=== PATIENT | female | born 1980 ===

== ENCOUNTER 2017-04-12 11:50 | Emergency (ER) | payer OTHER ==
[2017-04-12 11:57] VITALS: O2SAT 100; BMI 26.3
--- NOTE | 2017-04-12 12:21 | ED PDOC ---
Arrival/HPI - General Chief Complaint: Trauma Time Seen by Provider: 04/12/17 12:13 Historian: Patient - History of Present Illness Narrative History of Present Illness (Text): 04/12/17 12:18 36 y/o female, no significant pmh, nkda, c/o lt. elbow pain s/p fall from the standing position x 1 hour. Pt. is an employee of the hospital, slipped on the wet floor and landed on the left elbow, feeling left elbow pain, no head/neck/ back injury, no LOC, no change in vision, no hematuria, no night sweat, no numbness or tingling, no loss of sensation of the lt. upper extremity, no other medical or psychological complaints. Past Medical History - Provider Review Nursing Documentation Reviewed: Yes - Psychiatric Hx Substance Use: No - Anesthesia Hx Anesthesia: No Family/Social History - Physician Review Nursing Documentation Reviewed: Yes Family/Social History: Unknown Family HX Smoking Status: Never Smoked Hx Alcohol Use: No Hx Substance Use: No Allergies/Home Meds Allergies/Adverse Reactions: Allergies No Known Allergies Allergy (Verified 04/12/17 11:57) Review of Systems - Review of Systems Constitutional: absent: Fatigue, Fevers Eyes: absent: Vision Changes ENT: absent: Hearing Changes Respiratory: absent: SOB, Cough Cardiovascular: absent: Chest Pain Gastrointestinal: absent: Abdominal Pain, Nausea, Vomiting Genitourinary Female: absent: Dysuria Musculoskeletal: Arthralgias, Myalgias. absent: Back Pain, Neck Pain Skin: absent: Rash, Pruritis Neurological: absent: Headache, Dizziness, Focal Weakness Psychiatric: absent: Anxiety, Depression, Suicidal Ideation Physical Exam Vital Signs Reviewed: Yes Vital Signs Temp Pulse Resp BP Pulse Ox 04/12/17 12:57 98 F 73 20 122/65 100 04/12/17 12:52 68 18 123/75 100 04/12/17 11:52 98.3 F 70 18 127/85 100 Temperature: Afebrile Blood Pressure: Normal Pulse: Regular Respiratory Rate: Normal Appearance: Positive for: Well-Appearing, Non-Toxic, Comfortable Pain Distress: Mild Mental Status: Positive for: Alert and Oriented X 3 - Systems Exam Head: Present: Atraumatic, Normocephalic Pupils: Present: PERRL Extroacular Muscles: Present: EOMI Conjunctiva: Present: Normal Mouth: Present: Moist Mucous Membranes Neck: Present: Normal Range of Motion, Trachea Midline. No: MIDLINE TENDERNESS , Paraspinal Tenderness Respiratory/Chest: Present: Clear to Auscultation, Good Air Exchange. No: Respiratory Distress, Accessory Muscle Use Cardiovascular: Present: Regular Rate and Rhythm, Normal S1, S2. No: Murmurs Abdomen: Present: Normal Bowel Sounds. No: Tenderness, Distention, Peritoneal Signs, Rebound, Guarding Back: Present: Normal Inspection. No: Midline Tenderness, Paraspinal Tenderness , Pain with Leg Raise Upper Extremity: Present: Normal Inspection, Other (LUE: mild +ttp on the olecranon region, no swelling or deformity, skin intact, FROM without limitation , sensation intact, motor 5/5, +radial pulse, capillary refill< 2 seconds, neurovascular intact.). No: Cyanosis, Edema Lower Extremity: Present: Normal Inspection. No: Edema Neurological: Present: GCS=15, CN II-XII Intact, Speech Normal, Motor Func Grossly Intact, Gait Normal, Memory Normal Skin: Present: Warm, Dry, Normal Color. No: Rashes Psychiatric: Present: Alert, Oriented x 3, Normal Insight, Normal Concentration Medical Decision Making ED Course and Treatment: 04/12/17 12:21 -tylenol and left elbow xray 04/12/17 12:44 -Lt. elbow xray show no fracture or dislocation -Uli wrap applied with neurovascular intact. -Discharge home with uli wrap, naproxen, ice compression, follow up with your own employee health within 24-48 hours, follow up with your own pmd and orthopedic within 4 days, return to the ER for any new or worsening signs or symptoms. - RAD Interpretation Radiology Orders: 04/12/17 12:13 ELBOW LEFT 3 VIEWS ROUTINE [RAD] Stat no evidence of acute pathology. Water Purification Chemist: Radiologist - Medication Orders Current Medication Orders: Discontinued Medications Acetaminophen (Tylenol 325mg Tab) 650 mg PO STAT STA Stop: 04/12/17 12:14 Last Admin: 04/12/17 12:20 Dose: 650 mg MAR Pain/Vitals Document 04/12/17 12:20 GMI (Rec: 04/12/17 12:21 [facility] [id number]) Pain Reassessment Is This A Pain ReAssessment? Yes Sleep Is patient sleeping during reassessment? No Presence of Pain Presence of Pain Yes Pain Scale Used Pain Scale Used Numeric Location Left, Right or Bilateral Left Pain Location Body Site Elbow Description Intermittent Intensity 5 Pain Behavior Facial Grimacing - PA / ENVIRONMENTAL HEALTH MANAGER / Resident Statement MD/DO has reviewed & agrees with the documentation as recorded. Disposition/Present on Arrival - Present on Arrival Any Indicators Present on Arrival: No History of DVT/PE: No History of Uncontrolled Diabetes: No Urinary Catheter: No History of Decub. Ulcer: No History Surgical Site Infection Following: None - Disposition Have Diagnosis and Disposition been Completed?: Yes Diagnosis: Accidental fall, Elbow pain Disposition: HOME/ ROUTINE Disposition Time: 12:45 Patient Plan: Discharge Condition: GOOD Additional Instructions: -Discharge home with uli wrap, naproxen, ice compression, follow up with your own employee health within 24-48 hours, follow up with your own pmd and orthopedic within 4 days, return to the ER for any new or worsening signs or symptoms. Prescriptions: Naproxen 500 mg PO BID PRN #[id number] tab PRN Reason: Other Referrals: Martell Dominguez MD [Staff Provider] - Follow up with primary [facility] at [facility] [place] [Outside] - Follow up with primary Forms: WORK NOTE
[2017-04-12 12:58] VITALS: BP 122/65; PULSE 73; RESP 20; TEMP 98
--- NOTE | 2017-04-12 14:18 | RAD ---
PROCEDURE: Radiographs of the left elbow. HISTORY: lt. elbow injury s/p fall COMPARISON: No prior. FINDINGS: BONES: Normal. No fracture. JOINTS: Normal. No osteoarthritis. SOFT TISSUES: Normal. JOINT EFFUSION: None. OTHER FINDINGS: None IMPRESSION: No evidence of acute pathology.
== END 2017-04-12 13:16 | disposition home or self-care (01) ==
LOC: ED 11:50 → MERGE 11:50 → ED 13:16
DX: M25.522 Pain in left elbow (principal)